=== PATIENT | male | born 1965 | race Caucasian/White ===

== ENCOUNTER 2022-03-20 16:10 | Emergency (ER) | payer SELFPAY ==
[~2022-03-20] VITALS: Ht 182.9 cm; Wt 91.0 kg
[2022-03-20] MEDS: MIDAZOLAM HCL 2 MG/2 ML VIAL IM ONE ×2 (17:05→17:09)
[2022-03-20] MEDS: HALOPERIDOL LACTATE 5MG/ML VIAL IM ONE ×2 (17:05→17:09)
[2022-03-20 17:09] VITALS: BP 144/90
== END 2022-03-20 18:30 | disposition home or self-care (01) ==
LOC: ER 16:10
DX: F10.129 Alcohol abuse with intoxication, unspecified (principal); Y90.9 Presence of alcohol in blood, level not specified
CPT/HCPCS: 99283; J1630; J2250